=== PATIENT | female | born 1940 | race Caucasian/White ===

== ENCOUNTER → 2024-01-23 13:23 | Outpatient (REF) | payer MEDICARE, SELFPAY | LOC: MRI 3T 13:23 | PROVIDERS: ATTENDING PHYSICIAN Physical Medicine & Rehabilitation; FAMILY PHYSICIAN Student in an Organized Health Care Education/Training Program | DX: M54.16 Radiculopathy, lumbar region (principal) | CPT/HCPCS: 72148 ==

== ENCOUNTER → 2024-02-25 15:29 | Outpatient (REF) | payer MEDICARE, SELFPAY | LOC: PAVMRI 15:29 | PROVIDERS: ATTENDING PHYSICIAN Specialist; FAMILY PHYSICIAN Student in an Organized Health Care Education/Training Program | DX: R44.1 Visual hallucinations (principal) | CPT/HCPCS: 70551 ==

== ENCOUNTER → 2024-03-09 07:37 | Outpatient (REF) | payer MEDICARE, SELFPAY | LOC: EMG 07:37 | PROVIDERS: ATTENDING PHYSICIAN Orthopaedic Surgery | DX: R20.0 Anesthesia of skin (principal) | CPT/HCPCS: 95886; 95909 ==

== ENCOUNTER → 2024-06-07 16:06 | Outpatient (REF) | payer MEDICARE, SELFPAY | LOC: PAVMRI 16:06 | PROVIDERS: ATTENDING PHYSICIAN Orthopaedic Surgery | DX: M25.561 Pain in right knee (principal) | CPT/HCPCS: 73721 ==

== ENCOUNTER → 2024-08-24 15:23 | Outpatient (REF) | payer MEDICARE, SELFPAY ==
[2024-08-24 17:44] LABS: % Basophils 0.4 % (0-2); % Eosinophils 0.2 % (0-6); % Immature Granulocytes 0.4 % (0-0.5); % Lymphocytes 16.5 % (20.5-51.1); % Monocytes 7.1 % (1.7-9.3); % Neutrophils 75.4 % (42.2-75.2); Absolute Lymphocytes 1.6 10^3/uL (1.2-3.4); Absolute Monocytes 0.7 10^3/uL (0.1-0.6); Absolute Neutrophils 7.3 10^3/uL (1.4-6.5); Hematocrit 35.3 % (37.0-47.0); Hemoglobin 11.2 g/dL (12.0-16.0); Mean Corp Hgb Conc. 31.7 g/dL (33.0-37.0); Mean Corpuscular Hgb 29.2 pg (27.0-31.0); Mean Corpuscular Volume 92.2 fL (81.0-99.0); Mean Platelet Volume 10.5 fL (7.4-10.4); Nucleated Red Blood Cells % 0 %; Platelet Count 326 10^3/uL (130-400); Red Blood Cell Count 3.83 10^6/uL (4.20-5.40); Red Cell Dist. Width 13.3 % (11.5-14.5); White Blood Cell Count 9.6 10^3/uL (4.8-10.8)
== END ==
LOC: REG 15:23
PROVIDERS: ATTENDING PHYSICIAN Specialist; FAMILY PHYSICIAN Physical Medicine & Rehabilitation; REFERRING PHYSICIAN Physician Assistant Medical
DX: M47.896 Other spondylosis, lumbar region (principal); K92.1 Melena
CPT/HCPCS: 36415; 72100; 85025

== ENCOUNTER 2025-01-12 01:34 | Emergency (ER) | payer MEDICARE, SELFPAY ==
[2025-01-12 02:11] VITALS: BP 173/117
== END 2025-01-12 03:38 ==
LOC: EMR 01:34
DX: R10.9 Unspecified abdominal pain (principal); K59.00 Constipation, unspecified; Z53.21 Procedure and treatment not carried out due to patient leaving prior to being seen by health care provider
CPT/HCPCS: 99283

== ENCOUNTER 2025-03-21 06:17 | Day surgery (SDC) | payer MEDICARE, SELFPAY | END 2025-03-21 13:58 | disposition home or self-care (01) | LOC: GI 06:17 | PROVIDERS: ATTENDING PHYSICIAN Specialist | DX: K29.70 Gastritis, unspecified, without bleeding (principal); K29.50 Unspecified chronic gastritis without bleeding; K31.7 Polyp of stomach and duodenum; K31.89 Other diseases of stomach and duodenum; I89.0 Lymphedema, not elsewhere classified; K92.1 Melena; D64.9 Anemia, unspecified | CPT/HCPCS: 43239; 88305; 88342 ==

== ENCOUNTER → 2025-04-20 15:00 | Outpatient (REF) | payer MEDICARE, SELFPAY | LOC: REG 15:00 | PROVIDERS: ATTENDING PHYSICIAN Family Medicine | DX: M54.9 Dorsalgia, unspecified (principal); M25.559 Pain in unspecified hip; M25.569 Pain in unspecified knee | CPT/HCPCS: 72100; 73502; 73560 ==

== ENCOUNTER → 2025-05-16 08:21 | Outpatient (REF) | payer MEDICARE, SELFPAY ==
[2025-05-16 09:03] LABS: Hematocrit 42.2 % (37.0-47.0); Hemoglobin 13.8 g/dL (12.0-16.0); Mean Corp Hgb Conc. 32.7 g/dL (33.0-37.0); Mean Corpuscular Volume 93.2 fL (81.0-99.0); Nucleated Red Blood Cells % 0 %; Platelet Count 279 10^3/uL (130-400); Red Cell Dist. Width 13.4 % (11.5-14.5)
[2025-05-16 09:25] LABS: ALT (SGPT) 20 U/L (0-35); AST (SGOT) 22 U/L (14-36); Albumin 4.2 g/dl (3.5-5.0); Alkaline Phosphatase 101 U/L (38-126); Blood Urea Nitrogen 14 mg/dl (7-17); Calcium 9.6 mg/dl (8.4-10.2); Carbon Dioxide 32 mmol/L (22-30); Chloride 104 mmol/L (98-107); Glucose 109 mg/dl (70-99); Iron 112 ug/dl (37-170); Potassium 4.6 mmol/L (3.5-5.1); Sodium 141 mmol/L (135-145); Total Protein 7.0 g/dl (6.3-8.2); eGFR > 60.00
[2025-05-16 09:34] LABS: Total Iron Binding Capacity 356 ug/dl (265-497)
[2025-05-16 09:59] LABS: Ferritin 36.4 ng/ml (11.1-264.0)
[2025-05-16 10:31] LABS: Folate > 20.0 ng/ml (2.76-20); Vitamin B12 378 pg/ml (239-931)
== END ==
LOC: REG 08:21
PROVIDERS: ATTENDING PHYSICIAN Specialist; FAMILY PHYSICIAN Family Medicine
DX: D64.9 Anemia, unspecified (principal); D52.9 Folate deficiency anemia, unspecified
CPT/HCPCS: 36415; 80053; 82607; 82728; 82746; 83540; 83550; 85025

== ENCOUNTER 2025-05-22 09:55 | Emergency (ER) | payer MEDICARE, SELFPAY ==
[2025-05-22 09:58] VITALS: BP 170/74
[2025-05-22 10:21] VITALS: BP 142/92
--- NOTE | 2025-05-22 10:41 | ED.GENMED ---
History of Present Illness
General
Chief Complaint: Abdominal Symptoms
Source: patient
Exam Limitations: none
Time Seen by Provider: 05/22/25 10:18
History of Present Illness
History of Present Illness:
85-year-old female presents complaining of multiple complaints including and mainly limited to lack of bowel movements over the past month. She notes a fall several months ago onto the right side of her body that was never evaluated but since then
she has been having trouble moving her bowels. No vomiting or fever. She has history of fibromyalgia. She tried MiraLAX without any significant relief. Of note, patient was on Percocet for years and recently within the past several months weaned
off of this. She notes a daily basis she experiences hot sweats and burning throughout her body the last couple hours and goes away.
Past History
Past History
ED Past Medical History: Fibromyalgia, HTN, Other (Irritable bowel syndrome, fibromyalgia, depression, anxiety) and Other (constipation, rectal pain, rectal stenosis/stricture)
ED Past Surgical History: Cholecystectomy, Gynecological, Orthopedic and Other (Rectal problems for years. Blockage small intestine 06/23. Constipation. Was told she may need anoplasty. 01/29/15 Dr. Miller did anal dilation which helped for a short
period but doesn't seem to be helping any more.)
Social History
Tobacco: Non-smoker
Alcohol: None
Drug: None
Personal: Partner
Living: with family
Employment: Retired
Family History
Family History: Other (reviewed and non-contributory)
Phy Exam
Physical Exam
Physical Exam:
General: Well-appearing female no acute distress
HEENT: Normal cephalic atraumatic heart: Regular rate and rhythm
Lungs: Clear no wheeze abdomen is soft nontender nondistended
Rectal exam: No stool within the rectal vault no obvious hemorrhoid
Course
Orders/Labs/Results
Orders:
Orders
05/22/25 10:40
CT Abd/pelvis W Iv Cont Urgent
Comment:
Reason For Exam: abdominal pain
05/22/25 10:47
Complete Blood Count/With Diff Urgent
Comprehensive Metabolic Panel Urgent
Lipase Urgent
TSH Reflex To Free T4 Urgent
Abnormal Lab Results
05/22/25
10:47
MCHC 32.8 L g/dL
(33.0-37.0)
Absolute Monos (auto) 0.7 H 10^3/uL
(0.1-0.6)
Lymphocytes % 15.2 L %
(20.5-51.1)
Glucose 110 H mg/dl
(70-99)
05/22/25 10:47
05/22/25 10:47
Vital Signs
Initial and Last Documented VS:
Initial Vital Signs
Temp Pulse Resp BP Pulse Ox
98 F 83 20 170/74 98
05/22/25 09:58 05/22/25 09:58 05/22/25 09:58 05/22/25 09:58 05/22/25 09:58
Last Documented Vital Signs
Temp Pulse Resp BP Pulse Ox
98 F 73 16 145/91 97
05/22/25 09:58 05/22/25 13:02 05/22/25 13:02 05/22/25 12:09 05/22/25 12:23
MDM/Problems Addressed
Differential Diagnosis Includes:
Patient's main complaint is lack of bowel movements. She has a history of bowel resection in the past. Will order CT scan as there is no stool to it disimpact manually. Will check labs secondary to the sweats and burning she is having
*Pulse Oximetry
SaO2: 96
Oxygen Mode of Delivery: Room air
Patient hypoxic: no
*Critical Care Note
Total Time (30-74mins, 75-104mins- exclusive of procedures): Not Applicable
Update Note
Update Note:
CT reviewed and is negative for acute finding. Labs reviewed without significant finding. Etiology of patient's symptoms somewhat unclear but no indication for admission or emergent pathology obvious today. Will advise follow-up with GI and
stable for discharge
ED Attending Note
-
Portions of this chart may have been created with voice recognition software.� Occasional wrong word or��sound alike� substitutions may have occurred due to the inherent limitations of voice recognition software.
Discharge Plan
Departure
Patient Disposition: Home (Routine Discharge)
Date of Disposition: 05/22/25
Time of Disposition: 13:39
Patient with high blood pressure during this ER visit?: No
Discharge Problem:
Chronic generalized pain
Instructions: Constipation, Adult (DC)
Prescriptions:
No Action
sennosides [senna] 1 TABLET tablet
2 tab PO HS
clonazepam 1 MG tablet
1 mg PO HS
Patient Comments:
09/04/22-- patient picked up on 08/30/22 #90
calcium carbonate [Oyster Shell Calcium 500] 500 MG tablet
500 mg PO QPM
gabapentin 300 MG capsule
600 mg PO HS
multivitamin with folic acid [Tab-A-Jacquelyn] 1 TABLET tablet
1 tab PO QPM
amitriptyline 25 MG tablet
50 mg PO HS
oxycodone-acetaminophen [Percocet] 5-325 mg Tablet
1 tab PO Q4HPRN PRN (Reason: severe pain)
Referrals:
Tommie Leahy DO [Family Provider, Family Practice]
Activity Restrictions/Additional Instructions:
Continue drinking plenty of fluids. Continue with MiraLAX for constipation. Follow-up with your GI as planned.
Interventions
Interventions:
*Risk Screen - Suicide Last Done: 05/22/25 09:58
*General Assessment Last Done: 05/22/25 09:58
*Neglect/Abuse Screening Last Done: 05/22/25 09:58
*ED- Fall Risk Assessment Last Done: 05/22/25 10:30
*ED COVID-19 Vaccine History Last Done: 05/22/25 10:24
*ED Influenza Vaccine History Last Done: 05/22/25 10:24
MY-Jniwfl-Ldzfckbrxu Assessment Last Done: 05/22/25 10:24
Discharge Date and Time
Print Language: MAORI
[2025-05-22 10:56] LABS: Hematocrit 40.3 % (37.0-47.0); Hemoglobin 13.2 g/dL (12.0-16.0); Mean Corp Hgb Conc. 32.8 g/dL (33.0-37.0); Mean Corpuscular Volume 90.6 fL (81.0-99.0); Nucleated Red Blood Cells % 0 %; Platelet Count 265 10^3/uL (130-400); Red Cell Dist. Width 13.4 % (11.5-14.5)
[2025-05-22 11:24] LABS: ALT (SGPT) 19 U/L (0-35); AST (SGOT) 22 U/L (14-36); Albumin 4.0 g/dl (3.5-5.0); Alkaline Phosphatase 96 U/L (38-126); Blood Urea Nitrogen 12 mg/dl (7-17); Calcium 9.3 mg/dl (8.4-10.2); Carbon Dioxide 29 mmol/L (22-30); Chloride 105 mmol/L (98-107); Glucose 110 mg/dl (70-99); Lipase 114 U/L (23-300); Potassium 3.9 mmol/L (3.5-5.1); Sodium 139 mmol/L (135-145); Total Protein 6.7 g/dl (6.3-8.2); eGFR > 60.00
[2025-05-22 12:09] VITALS: BP 145/91
[2025-05-22 13:18] LABS: Glucose - Point of Care 95 mg/dl (70-99)
[2025-05-22 13:41] VITALS: BP 138/78
== END 2025-05-22 14:00 | disposition home or self-care (01) ==
LOC: EMR 09:55
PROVIDERS: Physician Assistant; EMERGENCY PHYSICIAN Emergency Medicine; FAMILY PHYSICIAN Family Medicine
DX: R10.84 Generalized abdominal pain (principal); I10 Essential (primary) hypertension; K58.9 Irritable bowel syndrome, unspecified; M79.7 Fibromyalgia; F41.9 Anxiety disorder, unspecified; F32.A Depression, unspecified; Z90.49 Acquired absence of other specified parts of digestive tract
CPT/HCPCS: 99284; 74177; 80053; 82962; 83690; 84443; 85025; Q9967